=== PATIENT | female | born 1965 | race Caucasian/White ===

== ENCOUNTER 2017-02-13 14:47 | Inpatient (IN) | payer BC ==
[~2017-02-13] VITALS: Ht 167.6 cm; Wt 58.1 kg
[2017-02-13] MEDS ORDERED: ONDANSETRON INJ 2 MG/ML 2 ML VIAL IV STA (15:08)
[2017-02-13] MEDS ORDERED: MoRPHine SULFATE 4 MG/ML 1 ML CARP\\VIAL IV ONE (15:15)
[2017-02-13] MEDS ORDERED: SODIUM CHLORIDE 0.9% 1000ML 1,000 ML IV ONE (15:15)
[2017-02-13 15:27] LABS: URINE APPEARANCE CLOUDY (CLEAR); URINE COLOR DK YELLOW; URINE EPITHELIAL CELL AUTO >30 /lpf (0-5); URINE NITRITE NEG (NEG); URINE SPECIFIC GRAVITY 1.027 (1.000-1.030); UROBILINOGEN NEG (NEG); ZZUR CULT IF INDIC CLEAN CATCH YES
[2017-02-13 15:29] LABS: MANUAL MICROSCOPIC REQUIRED? NO; REVIEW REQ? NO
[2017-02-13] MEDS ORDERED: OPTIRAY 320 IV PRN (15:30)
[2017-02-13 15:31] LABS: URINE BILIRUBIN NEG (NEG)
[2017-02-13 15:40] LABS: BASO % 0.2 %; BASO ABS # 0.03 K/uL (0-0.2); COMPLETE YES; EOS % 1.4 %; HEMATOCRIT 42.8 % (37-47); IG% 0.3 %; LYMPH % 11.9 %; LYMPH ABS # 1.65 K/uL (1.2-3.4); MEAN CELL VOLUME 92.8 fL (80-100); MEAN CORPUSCULAR HEMOGLOBIN 32.5 pg (25-34); MEAN PLATELET VOLUME 10.1 fL (7.4-10.4); MONO % 8.2 %; PLATELET COUNT 208 K/uL (130-400); RED BLOOD COUNT 4.61 M/uL (4.2-5.4); WHITE BLOOD COUNT 13.81 K/uL (4.8-10.8)
[2017-02-13] MEDS ORDERED: MULT-240 PO (15:42)
[2017-02-13] MEDS ORDERED: MAGN1TAB16 PO (15:47)
[2017-02-13] MEDS ORDERED: CHOL100027 PO (15:47)
[2017-02-13] MEDS ORDERED: [UNRECOGNIZED DRUG - OTHER] PO (15:47)
[2017-02-13 15:58] LABS: BUN/CREATININE RATIO 14.6 (10-20); CALCIUM 8.8 mg/dl (8.5-10.1); CREATININE 0.79 mg/dl (0.60-1.20); POTASSIUM 3.6 mmol/L (3.5-5.1)
[2017-02-13 16:01] LABS: ALB/GLOB RATIO 0.9 (0.9-2)
--- NOTE | 2017-02-13 17:58 | DIAGNOSTIC IMAGING REPORT ---
CT SCAN OF THE ABDOMEN AND PELVIS WITH IV CONTRAST CLINICAL HISTORY: Fever. Generalized abdominal pain. COMPARISON STUDY: Abdominal CT dated 09/04/2007. TECHNIQUE: Following the IV administration of 119 cc of Optiray 320, CT scan of the abdomen and pelvis is performed from the lung bases to the proximal femora. Images are reviewed in the axial, sagittal, and coronal planes. IV contrast was administered without complication. A dose lowering technique was utilized adhering to the principles of ALARA. CT DOSE: 275.64 mGy.cm FINDINGS: Lung bases: The heart is normal in size and without pericardial effusion. A fat-containing Bochdalek hernia is seen at the left lung base. No airspace consolidation or pleural effusion is identified. Liver: The contrast-enhanced liver is mildly enlarged measuring 19.5 cm in length. The liver is normal in contour and attenuation. There is no intrahepatic biliary ductal dilatation. The hepatic veins and portal veins are patent. Gallbladder: Unremarkable. Spleen: Normal in size and attenuation. Pancreas: Unremarkable. Adrenal glands: Unremarkable. Kidneys: The contrast enhanced kidneys are normal in size and without hydronephrosis. The kidneys enhance symmetrically. Scattered subcentimeter cortical hypodensities are identified in both kidneys. These may represent cysts but are too small for definitive characterization. Abdominal vasculature: The abdominal aorta is normal in course and caliber. Bowel: No bowel obstruction is identified. There is mild colonic diverticulosis, greatest involving the right colon. There is wall thickening and pericolonic inflammation seen involving the ascending colon, likely representing acute diverticulitis. Phlegmonous change is seen adjacent to the ascending colon on axial image #192. There is no organized fluid collection seen to confirm the presence of abscess. The appendix is well-visualized and normal. Peritoneum: No definite intraperitoneal free air is seen. There is no abdominal ascites. Lymphadenopathy: None. Pelvic viscera: The bladder, uterus, and adnexa are normal as visualized noting bilateral ovarian follicles. Trace free fluid is identified in the cul-de-sac. Skeletal structures: No lytic or blastic lesions are seen. IMPRESSION: 1. Findings are most consistent with acute diverticulitis of the right colon. There is phlegmonous change identified adjacent to the right colon without clear evidence of abscess. 2.If not recently performed a precautionary follow-up colonoscopy is recommended following appropriate treatment. 3. There is trace free fluid in the cul-de-sac, likely within physiologic limits. Electronically signed by: Jerry Bartlett M.D. 02/13/2017 5:57 PM Dictated Date/Time: 02/13/2017 5:48 PM
[2017-02-13] MEDS ORDERED: PIPERACILLIN/TAZOBACTAM 4.5 GM/100ML D5W IV STA (18:24)
--- NOTE | 2017-02-13 19:07 | EMERGENCY ROOM VISIT NOTE ---
History First contact with patient: 14:59 Chief Complaint: ABDOMINAL PAIN Stated Complaint: ABD PAIN, FEVER Nursing Triage Summary: pt to the ED with lower abd pain bloating and fever for the past couple days pt also has body aches no n/v/d History of Present Illness The patient is a 52 year old female who presents to the Emergency Room with complaints of generalized abdominal pain and bloating over the past one to 2 days. The patient states that she has had body aches and fever for the past one day. She is without nausea, vomiting, or diarrhea. She has been eating and drinking as normal. The patient initially went to urgent care clinic today , and was referred to the emergency department for further evaluation. The patient considers herself usually healthy and does not take medication on a regular basis. She has been using some ibuprofen with minimal improvement of symptoms. The patient does report having a colonoscopy last year which did show diverticulosis. She rates her current discomfort a 4/10. Review of Systems More than 10 systems were reviewed and otherwise negative with the exception of history of present illness. Past Medical/Surgical History Diverticulosis Family History No pertinent family history Social History Smoking Status: Former Smoker Marital Status: Current/Historical Medications Scheduled Cholecalciferol (Vitamin D 1000 Unit), 1,000 INTER.UNIT PO DAILY Magnesium (Chelated Magnesium), 100 MG PO DAILY Multiple Vitamins W/ Minerals (Womens One Daily), 1 TAB PO DAILY [Adrenal Tone], 1 CAP PO BID Allergies Coded Allergies: Ciprofloxacin (Verified Allergy, Unknown, Hives, 03/03/16) Sulfamethoxazole w/Trimethoprim (Verified Allergy, Unknown, Hives, 03/03/16 ) Uncoded Allergies: SEASONAL (Allergy, Unknown, 07/11/02) SOFT SHELL CLAMS (VIOLENT VOMITING) (Allergy, Unknown, 07/11/02) GENERALANESTHET (Adverse Reaction, Mild, 07/03/09) ?ANESTHESIA MEDS.(NAUSEA,VOMITING,FAINTING,DECREASE BP) Physical Exam Vital Signs Date Time Temp Pulse Resp B/P (MAP) Pulse Ox O2 Delivery O2 Flow Rate FiO2 02/13/17 18:33 78 16 118/64 96 Room Air 02/13/17 17:04 71 18 100/61 96 02/13/17 14:49 36.8 81 20 101/66 96 Room Air Physical Exam VITALS: Vitals are noted on the nurse's note and reviewed by myself. Vital signs stable. GENERAL: Well-developed, well-nourished, white female, who is in no acute distress and resting comfortably. Patient is cooperative with the examination. MOUTH: Mucous membranes moist. Tonsils are not enlarged. Pharynx without erythema, blood, or exudate. Uvula midline. Airway patent. NECK: Supple without nuchal rigidity. No lymphadenopathy. No thyromegaly. Cervical spine is nontender. HEART: Regular rate and rhythm without murmurs gallops or rubs. LUNGS: Clear to auscultation bilaterally without wheezes, rales or rhonchi. No retractions or accessory muscle use. ABDOMEN: Positive normal bowel sounds x 4. Soft with generalized tenderness on palpation. No distinct point tenderness. MUSCULOSKELETAL: No muscle atrophy, erythema, or edema noted. Full range of motion without joint tenderness in all extremities. Medical Decision & Procedures ER Provider Diagnostic Interpretation: CT SCAN OF THE ABDOMEN AND PELVIS WITH IV CONTRAST CLINICAL HISTORY: Fever. Generalized abdominal pain. COMPARISON STUDY: Abdominal CT dated 09/04/2007. TECHNIQUE: Following the IV administration of 119 cc of Optiray 320, CT scan of the abdomen and pelvis is performed from the lung bases to the proximal femora. Images are reviewed in the axial, sagittal, and coronal planes. IV contrast was administered without complication. A dose lowering technique was utilized adhering to the principles of ALARA. CT DOSE: 275.64 mGy.cm FINDINGS: Lung bases: The heart is normal in size and without pericardial effusion. A fat-containing Bochdalek hernia is seen at the left lung base. No airspace consolidation or pleural effusion is identified. Liver: The contrast-enhanced liver is mildly enlarged measuring 19.5 cm in length. The liver is normal in contour and attenuation. There is no intrahepatic biliary ductal dilatation. The hepatic veins and portal veins are patent. Gallbladder: Unremarkable. Spleen: Normal in size and attenuation. Pancreas: Unremarkable. Adrenal glands: Unremarkable. Kidneys: The contrast enhanced kidneys are normal in size and without hydronephrosis. The kidneys enhance symmetrically. Scattered subcentimeter cortical hypodensities are identified in both kidneys. These may represent cysts but are too small for definitive characterization. Abdominal vasculature: The abdominal aorta is normal in course and caliber. Bowel: No bowel obstruction is identified. There is mild colonic diverticulosis, greatest involving the right colon. There is wall thickening and pericolonic inflammation seen involving the ascending colon, likely representing acute diverticulitis. Phlegmonous change is seen adjacent to the ascending colon on axial image #192. There is no organized fluid collection seen to confirm the presence of abscess. The appendix is well-visualized and normal. Peritoneum: No definite intraperitoneal free air is seen. There is no abdominal ascites. Lymphadenopathy: None. Pelvic viscera: The bladder, uterus, and adnexa are normal as visualized noting bilateral ovarian follicles. Trace free fluid is identified in the cul-de-sac. Skeletal structures: No lytic or blastic lesions are seen. IMPRESSION: 1. Findings are most consistent with acute diverticulitis of the right colon. There is phlegmonous change identified adjacent to the right colon without clear evidence of abscess. 2.If not recently performed a precautionary follow-up colonoscopy is recommended following appropriate treatment. 3. There is trace free fluid in the cul-de-sac, likely within physiologic limits. Laboratory Results 02/13/17 15:23 Red Blood Count 4.61, Mean Corpuscular Volume 92.8, Mean Corpuscular Hemoglobin 32.5, Mean Corpuscular Hemoglobin Concent 35.0, Mean Platelet Volume 10.1, Neutrophils (%) (Auto) 78.0, Lymphocytes (%) (Auto) 11.9, Monocytes (%) (Auto) 8.2, Eosinophils (%) (Auto) 1.4, Basophils (%) (Auto) 0.2, Neutrophils # (Auto) 10.76, Lymphocytes # (Auto) 1.65, Monocytes # (Auto) 1.13, Eosinophils # (Auto) 0.20, Basophils # (Auto) 0.03 02/13/17 15:23 Test 02/13/17 15:14 02/13/17 15:23 02/13/17 15:30 Urine Color DK YELLOW Urine Appearance CLOUDY (CLEAR) Urine pH 6.0 (4.5-7.5) Urine Specific [place] 1.027 (1.000-1.030) Urine Protein TRACE (NEG) Urine Glucose (UA) NEG (NEG) Urine Ketones 3+ (NEG) Urine Occult Blood TRACE (NEG) Urine Nitrite NEG (NEG) Urine Bilirubin NEG (NEG) Urine Urobilinogen NEG (NEG) Urine Leukocyte Esterase TRACE (NEG) Urine WBC (Auto) 1-5 /hpf (0-5) Urine RBC (Auto) 10-30 /hpf (0-4) Urine Hyaline Casts (Auto) 1-5 /lpf (0-5) Urine Epithelial Cells (Auto) >30 /lpf (0-5) Urine Bacteria (Auto) 1+ (NEG) Urine Test NEG (NEG) White Blood Count 13.81 K/uL (4.8-10.8) Red Blood Count 4.61 M/uL (4.2-5.4) Hemoglobin 15.0 g/dL (12.0-16.0) Hematocrit 42.8 % (37-47) Mean Corpuscular Volume 92.8 fL (80-100) Mean Corpuscular Hemoglobin 32.5 pg (25-34) Mean Corpuscular Hemoglobin Concent 35.0 g/dl (32-36) Platelet Count 208 K/uL (130-400) Mean Platelet Volume 10.1 fL (7.4-10.4) Neutrophils (%) (Auto) 78.0 % Lymphocytes (%) (Auto) 11.9 % Monocytes (%) (Auto) 8.2 % Eosinophils (%) (Auto) 1.4 % Basophils (%) (Auto) 0.2 % Neutrophils # (Auto) 10.76 K/uL (1.4-6.5) Lymphocytes # (Auto) 1.65 K/uL (1.2-3.4) Monocytes # (Auto) 1.13 K/uL (0.11-0.59) Eosinophils # (Auto) 0.20 K/uL (0-0.5) Basophils # (Auto) 0.03 K/uL (0-0.2) RDW Standard Deviation 42.4 fL (36.4-46.3) RDW Coefficient of Variation 12.6 % (11.5-14.5) Immature Granulocyte % (Auto) 0.3 % Immature Granulocyte # (Auto) 0.04 K/uL (0.00-0.02) Anion Gap 8.0 mmol/L (3-11) Est Creatinine Clear Calc Drug Dose 76.4 ml/min Estimated GFR () 99.8 Estimated GFR (Non- 86.1 BUN/Creatinine Ratio 14.6 (10-20) Calcium Level 8.8 mg/dl (8.5-10.1) Total Bilirubin 2.0 mg/dl (0.2-1) Aspartate Amino Transf (AST/SGOT) 15 U/L (15-37) Alanine Aminotransferase (ALT/SGPT) 22 U/L (12-78) Alkaline Phosphatase 58 U/L (45-117) Total Protein 7.7 gm/dl (6.4-8.2) Albumin 3.7 gm/dl (3.4-5.0) Globulin 4.0 gm/dl (2.5-4.0) Albumin/Globulin Ratio 0.9 (0.9-2) Lipase 106 U/L (73-393) Bedside Lactic Acid Venous 0.89 mmol/L (0.90-1.70) Medications Administered Medications (Trade) Dose Ordered Sig/Juan R Route Start Time Stop Time Status Last Admin Dose Admin Sodium Chloride 1,000 ml @ 999 mls/hr Q1H1M ONCE IV 02/13/17 15:15 02/13/17 16:15 DC 02/13/17 15:21 999 MLS/HR Piperacillin Sod/ Tazobactam Sod (Zosyn Iv) 4.5 gm NOW STAT IV 02/13/17 18:24 02/13/17 18:26 DC 02/13/17 18:31 4.5 GM ED Course Physical exam and history were performed. Nursing notes, EMR, and Medication List were personally reviewed. Patient appears to have fever and generalized abdominal pain for the past one to 2 days. On examination the patient does have abdominal tenderness. She is not febrile here in the department. IV access was established and labs were obtained. The patient was hydrated with normal saline and given IV Zofran. I did order morphine, however the patient declined this as she did not have significant pain. Because of her symptoms and history of diverticulosis did elect to perform a CT scan of her abdomen and pelvis. The patient's blood work is as above and was reviewed. She does have an elevated white blood cell count of 13.8. She does not have significant anemia, bandemia, or gross electrolyte imbalance. Lipase and transaminases are nondiagnostic. Urine is without obvious infection. Lactic acid was negative. CT scan is as above and appears to show acute diverticulitis, which clinically does correlate with her symptoms. Of concern however is a fairly large phlegmon on the CT studies. There is no distinct abscess or air at this point, which is reassuring, however I have considerable concern that the patient will not do well with at home oral antibiotics. She is in much better candidate for admission and IV medication. Based on her allergies to Cipro and Bactrim she will be started on Zosyn. I did discuss the case with the on-call surgeon, Dr. Mcfarland, as well as the on- call [facility] Hospitalist Team, Haley Cruz. Please see their dictations for further patient course, plan, and disposition. The chart was completed utilizing [employer] Speech Voice Recognition Software. Grammatical errors, random word insertions, pronoun errors, and incomplete sentences are an occasional consequence of this system due to software limitations, ambient noise, and hardware issues. Any formal questions or concerns about the content, text, or information contained within the body of this dictation should be directly addressed to the provider for clarification. . Medical Decision Differential diagnosis: Etiologies such as appendicitis, diverticulitis, PUD, biliary pathology, UTI, pancreatitis, obstruction, mesenteric ischemia, aortic pathology, infections, inflammatory bowel disease, renal colic, as well as others were entertained. Impression Primary Impression: Acute diverticulitis Departure Information Referrals Joellen Fraire M.D. (PCP) Patient Instructions [facility]
--- NOTE | 2017-02-13 19:39 | Surgery Consultation ---
Consultation Date of Consultation: Feb 13, 2017. Attending Physician: History of Present Illness 52 y/o female began having generalized malaise and decreased appetite with low grade fever this past Wed upon returning home from a trip to [place]. She has also been to [place], [place], [place], [place] over the past 6 months. no diarrhea. Some pain now on Right side but not unbearable. Past Medical/Surgical History Medical Problems: (1) Acute diverticulitis Status: Acute Social History Smoking Status: Former Smoker Marital Status: Allergies Coded Allergies: Ciprofloxacin (Verified Allergy, Unknown, Hives, 03/03/16) Sulfamethoxazole w/Trimethoprim (Verified Allergy, Unknown, Hives, 03/03/16 ) Uncoded Allergies: SEASONAL (Allergy, Unknown, 07/11/02) SOFT SHELL CLAMS (VIOLENT VOMITING) (Allergy, Unknown, 07/11/02) GENERALANESTHET (Adverse Reaction, Mild, 07/03/09) ?ANESTHESIA MEDS.(NAUSEA,VOMITING,FAINTING,DECREASE BP) Home Medications Scheduled Cholecalciferol (Vitamin D 1000 Unit), 1,000 INTER.UNIT PO DAILY Magnesium (Chelated Magnesium), 100 MG PO DAILY Multiple Vitamins W/ Minerals (Womens One Daily), 1 TAB PO DAILY [Adrenal Tone], 1 CAP PO BID Current Inpatient Medications Current Inpatient Medications Medications (Trade) Dose Ordered Sig/Juan R Route Start Time Stop Time Status Last Admin Dose Admin Ioversol (Optiray 320) 100 ml UD PRN IV 02/13/17 15:30 02/17/17 15:29 Review of Systems Constitutional: + fever, + fatigue, + problem reported (generalized malaise, decreased appetite) Abdomen: + pain Physical Exam Date Time Temp Pulse Resp B/P (MAP) Pulse Ox O2 Delivery O2 Flow Rate FiO2 02/13/17 18:33 78 16 118/64 96 Room Air 02/13/17 17:04 71 18 100/61 96 02/13/17 14:49 36.8 81 20 101/66 96 Room Air General Appearance: WD/WN, no apparent distress Head: normocephalic, atraumatic Eyes: normal inspection, EOMI ENT: hearing grossly normal Neck: supple, no JVD Respiratory/Chest: no respiratory distress, no accessory muscle use Abdomen/GI: soft, + pertinent finding (+right sided TTP. + Rovsing. no guarding. ) Neurologic/Psych: alert, oriented x 3 Skin: normal color, warm/dry, no rash Laboratory Results Last 24 Hours Test 02/13/17 15:14 02/13/17 15:23 02/13/17 15:30 Urine Color DK YELLOW Urine Appearance CLOUDY Urine pH 6.0 Urine Specific [place] 1.027 Urine Protein TRACE Urine Glucose (UA) NEG Urine Ketones 3+ Urine Occult Blood TRACE Urine Nitrite NEG Urine Bilirubin NEG Urine Urobilinogen NEG Urine Leukocyte Esterase TRACE Urine WBC (Auto) 1-5 /hpf Urine RBC (Auto) 10-30 /hpf Urine Hyaline Casts (Auto) 1-5 /lpf Urine Epithelial Cells (Auto) >30 /lpf Urine Bacteria (Auto) 1+ Urine Test NEG White Blood Count 13.81 K/uL Red Blood Count 4.61 M/uL Hemoglobin 15.0 g/dL Hematocrit 42.8 % Mean Corpuscular Volume 92.8 fL Mean Corpuscular Hemoglobin 32.5 pg Mean Corpuscular Hemoglobin Concent 35.0 g/dl Platelet Count 208 K/uL Mean Platelet Volume 10.1 fL Neutrophils (%) (Auto) 78.0 % Lymphocytes (%) (Auto) 11.9 % Monocytes (%) (Auto) 8.2 % Eosinophils (%) (Auto) 1.4 % Basophils (%) (Auto) 0.2 % Neutrophils # (Auto) 10.76 K/uL Lymphocytes # (Auto) 1.65 K/uL Monocytes # (Auto) 1.13 K/uL Eosinophils # (Auto) 0.20 K/uL Basophils # (Auto) 0.03 K/uL RDW Standard Deviation 42.4 fL RDW Coefficient of Variation 12.6 % Immature Granulocyte % (Auto) 0.3 % Immature Granulocyte # (Auto) 0.04 K/uL Sodium Level 138 mmol/L Potassium Level 3.6 mmol/L Chloride Level 105 mmol/L Carbon Dioxide Level 25 mmol/L Anion Gap 8.0 mmol/L Blood Urea Nitrogen 12 mg/dl Creatinine 0.79 mg/dl Est Creatinine Clear Calc Drug Dose 76.4 ml/min Estimated GFR () 99.8 Estimated GFR (Non- 86.1 BUN/Creatinine Ratio 14.6 Random Glucose 80 mg/dl Calcium Level 8.8 mg/dl Total Bilirubin 2.0 mg/dl Aspartate Amino Transf (AST/SGOT) 15 U/L Alanine Aminotransferase (ALT/SGPT) 22 U/L Alkaline Phosphatase 58 U/L Total Protein 7.7 gm/dl Albumin 3.7 gm/dl Globulin 4.0 gm/dl Albumin/Globulin Ratio 0.9 Lipase 106 U/L Bedside Lactic Acid Venous 0.89 mmol/L Assessment & Plan CT scan reveals right sided diverticulitis with phlegmon no indication at this moment for urgent OR however with the inflammation being right sided we will certainly keep vigilant for clinically worsening symptoms NPO IV antibiotics will follow temp curve and wbc will follow closely.
[2017-02-13 20:40] VITALS: BP 101/64; PULSE 70; TEMP 37; O2SAT 95
[2017-02-13] MEDS ORDERED: ACETAMINOPHEN 325 MG TAB PO PRN (20:45)
[2017-02-13] MEDS ORDERED: LORAZEPAM 2 MG/ML 1 ML VIAL IV PRN (20:45)
[2017-02-13] MEDS ORDERED: KETOROLAC TROMETHAMINE 15 MG/ML VIAL IV. PRN (20:45)
[2017-02-13] MEDS ORDERED: HYDROmorphone INJ 0.5 MG/0.5 ML SYR IV PRN (20:45)
[2017-02-13] MEDS ORDERED: ACETAMINOPHEN IV 650 MG in EMPTY BAG 0 ML IV PRN (20:45)
[2017-02-13] MEDS ORDERED: ONDANSETRON INJ 2 MG/ML 2 ML VIAL IV PRN (20:45)
[2017-02-13 21:00] VITALS: BP 101/64; PULSE 70; TEMP 37; O2SAT 95; Ht 167.6 cm; Wt 58.1 kg
[2017-02-13] MEDS ORDERED: PIPERACILL/TAZOBAC CONSULT ACTIVE PRN (21:00)
[2017-02-13 21:20] LABS: PARTIAL THROMBOPLASTIN RATIO 1.2; PROTHROMBIN TIME (PATIENT) 10.4 SECONDS (9.0-12.0)
[2017-02-13] MEDS: D5NSS + 20MEQ KCL 1,000 ML IV SCH (21:26)
[2017-02-13] MEDS ORDERED: LORAZEPAM 2 MG/ML 1 ML VIAL IV STA (23:28)
[2017-02-13] MEDS ORDERED: LORAZEPAM INJ 0.25 MG in SYRINGE 0.125 ML IV STA (23:36)
[2017-02-13] MEDS: PIPERACILL/TAZOBAC IV 3.375 GM in DEXTROSE 5% 100ML IV SCH (23:50)
[2017-02-14] VITALS (7 sets, daily range): BP systolic 95–113; BP diastolic 59–69; PULSE 59–84; TEMP 36.7–37.2; O2SAT 94–97
[2017-02-14 06:01] LABS: BASO % 0.5 %; BASO ABS # 0.03 K/uL (0-0.2); COMPLETE YES; EOS % 4.7 %; HEMATOCRIT 39.2 % (37-47); IG% 0.2 %; LYMPH % 25.9 %; LYMPH ABS # 1.54 K/uL (1.2-3.4); MEAN CELL VOLUME 94.2 fL (80-100); MEAN CORPUSCULAR HEMOGLOBIN 31.3 pg (25-34); MEAN CORPUSCULAR HGB CONC 33.2 g/dl (32-36); MEAN PLATELET VOLUME 9.6 fL (7.4-10.4); MONO % 7.6 %; NEUT % 61.1 %; PLATELET COUNT 187 K/uL (130-400); RED BLOOD COUNT 4.16 M/uL (4.2-5.4); WHITE BLOOD COUNT 5.94 K/uL (4.8-10.8)
[2017-02-14 06:30] LABS: BUN/CREATININE RATIO 15.5 (10-20); CREATININE 0.65 mg/dl (0.60-1.20); POTASSIUM 3.5 mmol/L (3.5-5.1)
--- NOTE | 2017-02-14 07:25 | HISTORY & PHYSICAL EXAMINATION ---
DATE OF ADMISSION: 02/13/2017 PRIMARY CARE DOCTOR: Dr. Fraire. CHIEF COMPLAINT: Abdominal pain. HISTORY OF PRESENT ILLNESS: History is obtained from patient and records. Medical history is significant for colonic polyps, hemorrhoids, diverticulosis, past tobacco abuse, Two days history of right-sided abdominal pain, achy, flu-like symptoms. No chest pain, no shortness of breath, no problems with bowel movement. Patient went to urgent care center and was sent to the Emergency Room. CAT scan showed acute diverticulitis, R colon, phlegmonous change without clear evidence of abscess. Patient received Zosyn in the ER. MEDICAL HISTORY: As above. A 2016 colonoscopy showed diverticulosis and internal hemorrhoids and polyps. Repeat colonoscopy this year given villous adenoma pathology for 1 polyp. SURGERIES: Operations, she has had gynecologic procedures. HOME MEDICATIONS: Include multivitamins, magnesium. ALLERGIES: TO CIPRO, CLAMS, BACTRIM. FAMILY HISTORY: Upper GI cancer, hypertension. PERSONAL AND SOCIAL HISTORY: Past tobacco abuse. No chronic intake of alcoholic beverages. 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 REVIEW OF SYSTEMS: As per HPI, all other ROS negative. PHYSICAL EXAMINATION: VITAL SIGNS: Blood pressure was noted to be 118/64, pulse rate 77, RR 16, temperature 37, O2 sats 96 on room air. GENERAL: slightly anxious, uncomfortable, no respiratory distress. SKIN: Normal color. HEENT: [place] palpebral conjunctivae. Dry mucosa. NECK: No JVD. Supple. CHEST: Clear to auscultation. HEART: Regular rate and rhythm. ABDOMEN: Minimal tenderness on the right side. EXTREMITIES: No edema. No tenderness NEUROLOGIC: No gross focality. LABORATORY DATA: Hemoglobin 14, hematocrit 42.8, white cell count 13, platelets 208. Sodium 136, potassium 3.6, chloride 105, CO2 26, BUN 12, creatinine 0.7, and glucose was noted to be 80. IMAGING DATA: CT of abdomen and pelvis as per history of present illness ASSESSMENT: 1. Complicated diverticulitis. No signs of toxicity. unusual presentation of right-sided diverticulitis 2. hx colonic polyposis 3. Past tobacco abuse. PLAN: [facility] bowel rest. IVF, analgesia Zosyn Surgery consult. ER provider already in touch w Dr. Mcfarland. Patient due for follow-up screening colonoscopy w/ [facility] this year. DVT prophylaxis Lovenox subQ. Full code. MTDD
[2017-02-14] MEDS: PIPERACILL/TAZOBAC IV 3.375 GM in DEXTROSE 5% 100ML IV SCH ×3 (08:07→23:24)
[2017-02-14] MEDS: ENOXAPARIN 30 MG/0.3 ML SYR SQ SCH (09:52)
--- NOTE | 2017-02-14 11:20 | Progress Note ---
Medicine Progress Note Date & Time of Visit: Feb 14, 2017 at 11:20. (Michelle Mccord, P.A.-C.) Subjective Patient seen and examined. States that RLQ has continued since yesterday but has moved further right from midline, with radiation to her flank. Characterizes pain as sharp and localized today rather than diffuse yesterday. Feeling of abd distension has improved. Denies any fever, chills, nausea, vomiting, malaise, lightheadedness, CP, SOB. Had one episode of loose stool this morning. (Michelle Mccord, P.A.-C.) Objective Last 8 Hrs Date Time Temp Pulse Resp B/P (MAP) Pulse Ox O2 Delivery O2 Flow Rate FiO2 02/14/17 11:06 36.9 65 15 109/68 (82) 95 Room Air 02/14/17 08:28 36.9 65 15 97/64 (75) 95 Room Air 02/14/17 08:24 95 Room Air 02/14/17 07:49 36.9 65 15 97/64 (75) 95 Room Air Physical Exam: General Appearance: WD/WN, + mild distress Head: normocephalic, atraumatic Eyes: normal inspection, PERRL, EOMI ENT: hearing grossly normal, pharynx normal Neck: supple, no JVD, no adenopathy Respiratory/Chest: lungs clear to auscultation. No wheezes, rales or rhonci. No respiratory distress or accessory muscle use Cardiovascular: regular rate, rhythm, no murmur, normal peripheral pulses Abdomen/GI: normal bowel sounds, + TTP of RLQ. Rebound tenderness with palpation of R flank. + Rovsing's sign Extremities/Musculoskelatal: normal inspection, no calf tenderness, normal capillary refill, no pedal edema Neurologic/Psych: alert, normal mood/affect, oriented x 3 Skin: normal color, warm/dry Laboratory Results: Last 24 Hours Test 02/13/17 15:14 02/13/17 15:23 02/13/17 15:30 02/14/17 05:31 Urine Color DK YELLOW Urine Appearance CLOUDY Urine pH 6.0 Urine Specific [place] 1.027 Urine Protein TRACE Urine Glucose (UA) NEG Urine Ketones 3+ Urine Occult Blood TRACE Urine Nitrite NEG Urine Bilirubin NEG Urine Urobilinogen NEG Urine Leukocyte Esterase TRACE Urine WBC (Auto) 1-5 /hpf Urine RBC (Auto) 10-30 /hpf Urine Hyaline Casts (Auto) 1-5 /lpf Urine Epithelial Cells (Auto) >30 /lpf Urine Bacteria (Auto) 1+ Urine Test NEG White Blood Count 13.81 K/uL 5.94 K/uL Red Blood Count 4.61 M/uL 4.16 M/uL Hemoglobin 15.0 g/dL 13.0 g/dL Hematocrit 42.8 % 39.2 % Mean Corpuscular Volume 92.8 fL 94.2 fL Mean Corpuscular Hemoglobin 32.5 pg 31.3 pg Mean Corpuscular Hemoglobin Concent 35.0 g/dl 33.2 g/dl Platelet Count 208 K/uL 187 K/uL Mean Platelet Volume 10.1 fL 9.6 fL Neutrophils (%) (Auto) 78.0 % 61.1 % Lymphocytes (%) (Auto) 11.9 % 25.9 % Monocytes (%) (Auto) 8.2 % 7.6 % Eosinophils (%) (Auto) 1.4 % 4.7 % Basophils (%) (Auto) 0.2 % 0.5 % Neutrophils # (Auto) 10.76 K/uL 3.63 K/uL Lymphocytes # (Auto) 1.65 K/uL 1.54 K/uL Monocytes # (Auto) 1.13 K/uL 0.45 K/uL Eosinophils # (Auto) 0.20 K/uL 0.28 K/uL Basophils # (Auto) 0.03 K/uL 0.03 K/uL RDW Standard Deviation 42.4 fL 43.0 fL RDW Coefficient of Variation 12.6 % 12.5 % Immature Granulocyte % (Auto) 0.3 % 0.2 % Immature Granulocyte # (Auto) 0.04 K/uL 0.01 K/uL Prothrombin Time 10.4 SECONDS Prothromb Time International Ratio 1.0 Activated Partial Thromboplast Time 31.2 SECONDS Partial Thromboplastin Ratio 1.2 Sodium Level 138 mmol/L 140 mmol/L Potassium Level 3.6 mmol/L 3.5 mmol/L Chloride Level 105 mmol/L 109 mmol/L Carbon Dioxide Level 25 mmol/L 23 mmol/L Anion Gap 8.0 mmol/L 8.0 mmol/L Blood Urea Nitrogen 12 mg/dl 10 mg/dl Creatinine 0.79 mg/dl 0.65 mg/dl Est Creatinine Clear Calc Drug Dose 76.4 ml/min 92.9 ml/min Estimated GFR () 99.8 118.3 Estimated GFR (Non- 86.1 102.1 BUN/Creatinine Ratio 14.6 15.5 Random Glucose 80 mg/dl 86 mg/dl Calcium Level 8.8 mg/dl 8.0 mg/dl Magnesium Level 2.2 mg/dl Total Bilirubin 2.0 mg/dl Aspartate Amino Transf (AST/SGOT) 15 U/L Alanine Aminotransferase (ALT/SGPT) 22 U/L Alkaline Phosphatase 58 U/L Total Protein 7.7 gm/dl Albumin 3.7 gm/dl Globulin 4.0 gm/dl Albumin/Globulin Ratio 0.9 Lipase 106 U/L Bedside Lactic Acid Venous 0.89 mmol/L Hepatitis C Antibody Screen NEG Date/Time Source Procedure Growth Status 02/13/17 15:14 Urine , Clean Catch Urine Culture - Final MORE THAN THREE TYPES OF ORGANISMS LA... Complete (Michelle Mccord, P.A.-C.) Assessment & Plan This is a 52yo F with PMH of diverticulosis, hemorrhoids who presents with R sided abd pain and malaise x 2 days and was found to have acute diverticulitis. Acute diverticulitis of R colon: -Colonoscopy from 2016 with colonic polyps, internal hemorrhoids, diverticulosis -Denies any previous episodes of diverticulitis -CT abd/pelvis with phlegmonous change identified adjacent to R colon No clear evidence of abscess Trace fluid in cul-de-sac -General surgery on board -No indication for urgent surgery -However, will monitor closely for clinical worsening due to R sided diverticulitis -NPO for bowel rest -Continue IV abx -Pain control -Monitor labwork and vitals DVT Ppx: Lovenox Code status: FULL Dispo: Plan to return home once medically stable Current Inpatient Medications: Current Inpatient Medications Medications (Trade) Dose Ordered Sig/Juan R Route Start Time Stop Time Status Last Admin Dose Admin Ioversol (Optiray 320) 100 ml UD PRN IV 02/13/17 15:30 02/17/17 15:29 Enoxaparin Sodium (Lovenox Inj) 30 mg Q24H SQ 02/14/17 09:00 03/16/17 08:59 02/14/17 09:52 30 MG Acetaminophen (Tylenol Tab) 650 mg Q4H PRN PO 02/13/17 20:45 03/15/17 20:44 Acetaminophen 650 mg/Empty Bag 65 ml @ 260 mls/hr Q6H PRN IV 02/13/17 20:45 03/15/17 20:44 02/13/17 22:13 260 MLS/HR Ketorolac Tromethamine (Toradol Inj) 15 mg Q6H PRN IV. 02/13/17 20:45 02/18/17 20:44 02/13/17 23:51 15 MG Hydromorphone HCl (Dilaudid Inj) 0.5 mg Q3H PRN IV 02/13/17 20:45 02/27/17 20:44 02/14/17 07:19 0.5 MG Ondansetron HCl (Zofran Inj) 4 mg Q6H PRN IV 02/13/17 20:45 03/15/17 20:44 Lorazepam (Ativan Inj) 0.5 mg Q4H PRN IV 02/13/17 20:45 03/15/17 20:44 Piperacillin Sod/ Tazobactam Sod (Consult) 1 ea UD PRN N/A 02/13/17 21:00 03/15/17 20:59 Potassium Chloride/Dextrose/ Sod Cl 1,000 ml @ 75 mls/hr [id number] IV 02/13/17 21:00 03/15/17 20:59 02/13/17 21:26 75 MLS/HR Piperacillin Sod/ Tazobactam Sod 3.375 gm/Dextrose 115 ml @ 28.75 mls/ hr Q8H IV 02/14/17 00:00 02/23/17 15:59 02/14/17 08:07 28.75 MLS/HR Lorazepam 0.5 mg/ Syringe 0.5 ml @ 0.5 mls/min Q4H PRN IV 02/13/17 23:45 03/15/17 23:44 (Michelle Mccord ., P.A.-C.) Pt seen and examined, lab and images reviewed ,care co ordinateded with Michelle Mccord PA-C 52 yo f admitted to rt sided abdominal pain /CT abdomen /pelvis shows diverticulitis on rt colon clinically much better, no fever or chills , normal white count no nausea, abdominal pain has improved appreciate surgery eval advanced to clears , tolerating well cont conservative approach with IV fluids and IV abx plan to transition to Oral abx in next 24-48 hrs ( PO Cipro and Flagyl ) if pt continues to improve will need out pt colonoscopy in 6-8 weeks, ( was scheduled for feb 2017 as 1 yr follow up will update GI team Continued [facility] stay due to: multiple IV medications needed Discharge planning: home (8786) (Linda Amor M.D.)
--- NOTE | 2017-02-14 11:44 | Surgery Progress Note ---
Surgery Progress Note Date of Service Feb 14, 2017. Subjective some improvement, pain more localized to right, had loose BM this AM, no chills or fever Objective Vital Signs: Date Time Temp Pulse Resp B/P (MAP) Pulse Ox O2 Delivery O2 Flow Rate FiO2 02/14/17 11:06 36.9 65 15 109/68 (82) 95 Room Air 02/14/17 08:28 36.9 65 15 97/64 (75) 95 Room Air 02/14/17 08:24 95 Room Air 02/14/17 07:49 36.9 65 15 97/64 (75) 95 Room Air 02/14/17 00:00 36.8 72 16 108/61 (77) 97 Room Air 02/14/17 00:00 95 Room Air 02/13/17 21:00 37.0 70 16 101/64 95 Room Air 02/13/17 20:40 37.0 70 16 101/64 (76) 95 Room Air 02/13/17 20:15 73 20 110/58 96 02/13/17 18:33 78 16 118/64 96 Room Air 02/13/17 17:04 71 18 100/61 96 02/13/17 14:49 36.8 81 20 101/66 96 Room Air Abdomen: non distended, soft, + tenderness (mild right side, no guarding) Laboratory Results: Results Past 24 Hours Test 02/13/17 15:14 02/13/17 15:23 02/13/17 15:30 02/14/17 05:31 Range/Units Urine Color DK YELLOW Urine Appearance CLOUDY CLEAR Urine pH 6.0 4.5-7.5 Urine Specific [place] 1.027 1.000-1.030 Urine Protein TRACE NEG Urine Glucose (UA) NEG NEG Urine Ketones 3+ NEG Urine Occult Blood TRACE NEG Urine Nitrite NEG NEG Urine Bilirubin NEG NEG Urine Urobilinogen NEG NEG Urine Leukocyte Esterase TRACE NEG Urine WBC (Auto) 1-5 0-5 /hpf Urine RBC (Auto) 10-30 0-4 /hpf Urine Hyaline Casts (Auto) 1-5 0-5 /lpf Urine Epithelial Cells (Auto) >30 0-5 /lpf Urine Bacteria (Auto) 1+ NEG Urine Test NEG NEG White Blood Count 13.81 5.94 4.8-10.8 K/uL Red Blood Count 4.61 4.16 4.2-5.4 M/uL Hemoglobin 15.0 13.0 12.0-16.0 g/dL Hematocrit 42.8 39.2 37-47 % Mean Corpuscular Volume 92.8 94.2 80-100 fL Mean Corpuscular Hemoglobin 32.5 31.3 25-34 pg Mean Corpuscular Hemoglobin Concent 35.0 33.2 32-36 g/dl Platelet Count 208 187 130-400 K/uL Mean Platelet Volume 10.1 9.6 7.4-10.4 fL Neutrophils (%) (Auto) 78.0 61.1 % Lymphocytes (%) (Auto) 11.9 25.9 % Monocytes (%) (Auto) 8.2 7.6 % Eosinophils (%) (Auto) 1.4 4.7 % Basophils (%) (Auto) 0.2 0.5 % Neutrophils # (Auto) 10.76 3.63 1.4-6.5 K/uL Lymphocytes # (Auto) 1.65 1.54 1.2-3.4 K/uL Monocytes # (Auto) 1.13 0.45 0.11-0.59 K/uL Eosinophils # (Auto) 0.20 0.28 0-0.5 K/uL Basophils # (Auto) 0.03 0.03 0-0.2 K/uL RDW Standard Deviation 42.4 43.0 36.4-46.3 fL RDW Coefficient of Variation 12.6 12.5 11.5-14.5 % Immature Granulocyte % (Auto) 0.3 0.2 % Immature Granulocyte # (Auto) 0.04 0.01 0.00-0.02 K/uL Prothrombin Time 10.4 9.0-12.0 SECONDS Prothromb Time International Ratio 1.0 0.9-1.1 Activated Partial Thromboplast Time 31.2 21.0-31.0 SECONDS Partial Thromboplastin Ratio 1.2 Sodium Level 138 140 136-145 mmol/L Potassium Level 3.6 3.5 3.5-5.1 mmol/L Chloride Level 105 109 98-107 mmol/L Carbon Dioxide Level 25 23 21-32 mmol/L Anion Gap 8.0 8.0 3-11 mmol/L Blood Urea Nitrogen 12 10 7-18 mg/dl Creatinine 0.79 0.65 0.60-1.20 mg/dl Est Creatinine Clear Calc Drug Dose 76.4 92.9 ml/min Estimated GFR () 99.8 118.3 Estimated GFR (Non- 86.1 102.1 BUN/Creatinine Ratio 14.6 15.5 10-20 Random Glucose 80 86 70-99 mg/dl Calcium Level 8.8 8.0 8.5-10.1 mg/dl Magnesium Level 2.2 1.8-2.4 mg/dl Total Bilirubin 2.0 0.2-1 mg/dl Aspartate Amino Transf (AST/SGOT) 15 15-37 U/L Alanine Aminotransferase (ALT/SGPT) 22 12-78 U/L Alkaline Phosphatase 58 45-117 U/L Total Protein 7.7 6.4-8.2 gm/dl Albumin 3.7 3.4-5.0 gm/dl Globulin 4.0 2.5-4.0 gm/dl Albumin/Globulin Ratio 0.9 0.9-2 Lipase 106 73-393 U/L Bedside Lactic Acid Venous 0.89 0.90-1.70 mmol/L Hepatitis C Antibody Screen NEG NEG Microbiology Results 02/13/17 Urine Culture - Final, Complete MORE THAN THREE TYPES OF ORGANISMS [place]... Assessment & Plan ascending colon diverticulitis/phlegmon WBC normalized, afebrile colonoscopy 03/13 had ascending, descending and sigmoid diverticulosis, plan was to repeat in 1 year (4 cm sigmoid polyp resected) cont IV Zosyn will start clears
[2017-02-14] MEDS: D5NSS + 20MEQ KCL 1,000 ML IV SCH ×2 (14:21→23:23)
[2017-02-14] MEDS: LORAZEPAM INJ 0.5 MG in SYRINGE 0.25 ML IV PRN (21:32)
[2017-02-15] VITALS: BP 92/56; PULSE 72; TEMP 36.9; O2SAT 95; O2SAT 97
[2017-02-15 07:30] LABS: MEAN CELL VOLUME 93.4 fL (80-100); MEAN CORPUSCULAR HEMOGLOBIN 31.8 pg (25-34); MEAN CORPUSCULAR HGB CONC 34.1 g/dl (32-36); MEAN PLATELET VOLUME 9.9 fL (7.4-10.4); PLATELET COUNT 182 K/uL (130-400); RED BLOOD COUNT 3.96 M/uL (4.2-5.4); WHITE BLOOD COUNT 4.12 K/uL (4.8-10.8)
[2017-02-15 07:47] VITALS: BP 102/64; PULSE 66; TEMP 36.7; O2SAT 97
[2017-02-15 07:57] LABS: BUN/CREATININE RATIO 12.3 (10-20); CALCIUM 8.3 mg/dl (8.5-10.1); CREATININE 0.6 mg/dl (0.60-1.20); POTASSIUM 3.8 mmol/L (3.5-5.1)
--- NOTE | 2017-02-15 07:58 | Surgery Progress Note ---
Surgery Progress Note Date of Service Feb 15, 2017. Subjective + bowel movement, + diet (clears) feeling better, no fevers, back pain resolved Objective Vital Signs: Date Time Temp Pulse Resp B/P (MAP) Pulse Ox O2 Delivery O2 Flow Rate FiO2 02/15/17 07:47 36.7 66 14 102/64 (77) 97 Room Air 02/15/17 00:00 95 Room Air 02/15/17 00:00 36.9 72 18 92/56 (68) 97 Room Air 02/14/17 19:24 37.2 84 16 95/59 (71) 94 Room Air 02/14/17 16:00 Room Air 02/14/17 15:32 36.7 59 16 113/69 (84) 97 Room Air 02/14/17 11:06 36.9 65 15 109/68 (82) 95 Room Air 02/14/17 08:28 36.9 65 15 97/64 (75) 95 Room Air 02/14/17 08:24 95 Room Air Abdomen: non distended, soft, + tenderness (less RLQ) Laboratory Results: Results Past 24 Hours Test 02/15/17 07:05 Range/Units White Blood Count 4.12 4.8-10.8 K/uL Red Blood Count 3.96 4.2-5.4 M/uL Hemoglobin 12.6 12.0-16.0 g/dL Hematocrit 37.0 37-47 % Mean Corpuscular Volume 93.4 80-100 fL Mean Corpuscular Hemoglobin 31.8 25-34 pg Mean Corpuscular Hemoglobin Concent 34.1 32-36 g/dl RDW Standard Deviation 42.2 36.4-46.3 fL RDW Coefficient of Variation 12.3 11.5-14.5 % Platelet Count 182 130-400 K/uL Mean Platelet Volume 9.9 7.4-10.4 fL Assessment & Plan ascending colon diverticulitis/phlegmon WBC remains normal colonoscopy 03/13 had ascending, descending and sigmoid diverticulosis, plan was to repeat in 1 year (4 cm sigmoid polyp resected) cont IV Zosyn advance to full liquids
[2017-02-15 08:12] VITALS: O2SAT 97
[2017-02-15] MEDS: PIPERACILL/TAZOBAC IV 3.375 GM in DEXTROSE 5% 100ML IV SCH ×3 (08:28→23:23)
[2017-02-15] MEDS: ENOXAPARIN 30 MG/0.3 ML SYR SQ SCH (08:29)
--- NOTE | 2017-02-15 12:55 | Progress Note ---
Medicine Progress Note Date & Time of Visit: Feb 15, 2017 at 12:37. (Michelle Mccord, P.A.-C.) Subjective Patient seen and examined. Feeling much better today, tolerating full liquid diet. Still experiencing dull abdominal pain in RLQ but no longer radiating to back/ LLQ. Had 2 loose bowel movements today. Denies fever, chills, malaise, nausea, vomiting, constipation. (Michelle Mccord, P.A.-C.) Objective Last 8 Hrs Date Time Temp Pulse Resp B/P (MAP) Pulse Ox O2 Delivery O2 Flow Rate FiO2 02/15/17 08:12 97 Room Air 02/15/17 08:00 Room Air 02/15/17 07:47 36.7 66 14 102/64 (77) 97 Room Air Physical Exam: General Appearance: WD/WN, no distress Head: normocephalic, atraumatic Eyes: normal inspection, PERRL, EOMI ENT: hearing grossly normal, pharynx normal Neck: supple, no JVD, no adenopathy Respiratory/Chest: lungs clear to auscultation. No wheezes, rales or rhonci. No respiratory distress or accessory muscle use Cardiovascular: regular rate, rhythm, no murmur, normal peripheral pulses Abdomen/GI: normal bowel sounds, + TTP of RLQ. No guarding Extremities/Musculoskelatal: normal inspection, no calf tenderness, normal capillary refill, no pedal edema Neurologic/Psych: alert, normal mood/affect, oriented x 3 Skin: normal color, warm/dry Laboratory Results: Last 24 Hours Test 02/15/17 07:05 White Blood Count 4.12 K/uL Red Blood Count 3.96 M/uL Hemoglobin 12.6 g/dL Hematocrit 37.0 % Mean Corpuscular Volume 93.4 fL Mean Corpuscular Hemoglobin 31.8 pg Mean Corpuscular Hemoglobin Concent 34.1 g/dl RDW Standard Deviation 42.2 fL RDW Coefficient of Variation 12.3 % Platelet Count 182 K/uL Mean Platelet Volume 9.9 fL Sodium Level 142 mmol/L Potassium Level 3.8 mmol/L Chloride Level 110 mmol/L Carbon Dioxide Level 25 mmol/L Anion Gap 7.0 mmol/L Blood Urea Nitrogen 7 mg/dl Creatinine 0.60 mg/dl Est Creatinine Clear Calc Drug Dose 100.6 ml/min Estimated GFR () 121.5 Estimated GFR (Non- 104.8 BUN/Creatinine Ratio 12.3 Random Glucose 98 mg/dl Calcium Level 8.3 mg/dl (Michelle Mccord, P.A.-C.) Assessment & Plan This is a 52yo F with PMH of diverticulosis, hemorrhoids who presents with R sided abd pain and malaise x 2 days and was found to have acute diverticulitis. Acute diverticulitis of R colon: improving -Colonoscopy from 2016 with colonic polyps, internal hemorrhoids, diverticulosis -Denies any previous episodes of diverticulitis -CT abd/pelvis with phlegmonous change identified adjacent to R colon -General surgery on board -No indication for urgent surgery -Continue IV abx -Advance diet to full liquids. Tolerating well -Plan to switch to PO abx when appropriate for discharge -Coordinating out-patient follow-up colonoscopy in 8 weeks -Monitor labwork and vitals DVT Ppx: Lovenox Code status: FULL Dispo: Plan to return home once medically stable Continued [facility] stay due to: multiple IV medications needed Discharge planning: home ([id number]) Current Inpatient Medications: Current Inpatient Medications Medications (Trade) Dose Ordered Sig/Juan R Route Start Time Stop Time Status Last Admin Dose Admin Ioversol (Optiray 320) 100 ml UD PRN IV 02/13/17 15:30 02/17/17 15:29 Enoxaparin Sodium (Lovenox Inj) 30 mg Q24H SQ 02/14/17 09:00 03/16/17 08:59 02/14/17 09:52 30 MG Acetaminophen (Tylenol Tab) 650 mg Q4H PRN PO 02/13/17 20:45 03/15/17 20:44 Acetaminophen 650 mg/Empty Bag 65 ml @ 260 mls/hr Q6H PRN IV 02/13/17 20:45 03/15/17 20:44 02/13/17 22:13 260 MLS/HR Ketorolac Tromethamine (Toradol Inj) 15 mg Q6H PRN IV. 02/13/17 20:45 02/18/17 20:44 02/13/17 23:51 15 MG Hydromorphone HCl (Dilaudid Inj) 0.5 mg Q3H PRN IV 02/13/17 20:45 02/27/17 20:44 02/14/17 07:19 0.5 MG Ondansetron HCl (Zofran Inj) 4 mg Q6H PRN IV 02/13/17 20:45 03/15/17 20:44 Lorazepam (Ativan Inj) 0.5 mg Q4H PRN IV 02/13/17 20:45 03/15/17 20:44 Piperacillin Sod/ Tazobactam Sod (Consult) 1 ea UD PRN N/A 02/13/17 21:00 03/15/17 20:59 Potassium Chloride/Dextrose/ Sod Cl 1,000 ml @ 75 mls/hr [id number] IV 02/13/17 21:00 03/15/17 20:59 02/14/17 23:23 75 MLS/HR Piperacillin Sod/ Tazobactam Sod 3.375 gm/Dextrose 115 ml @ 28.75 mls/ hr Q8H IV 02/14/17 00:00 02/23/17 15:59 02/15/17 08:28 28.75 MLS/HR Lorazepam 0.5 mg/ Syringe 0.5 ml @ 0.5 mls/min Q4H PRN IV 02/13/17 23:45 03/15/17 23:44 02/14/17 21:32 0.5 MLS/MIN (Michelle Mccord ., P.A.-C.) ATTENDING NOTE ; pt seen and examined, care co ordinated with Michelle Mccord PA-C , please see her documentation for detail discussion , abdominal pain has improved no nausea diet advanced to full liquid by surgery -tolerating well cont iV abx for now plan to change to PO Abx Cipro/Flagyl in next 24-48 hrs as pt clinically improves out pt follow up colonoscopy in 8 weeks , [facility] GI team aware Discharge planning: home ([id number]) (Linda Amor M.D.)
[2017-02-15] MEDS: D5NSS + 20MEQ KCL 1,000 ML IV SCH (15:03)
[2017-02-15 15:49] VITALS: BP 107/68; PULSE 71; TEMP 36.6; O2SAT 98
[2017-02-15] MEDS: LORAZEPAM INJ 0.5 MG in SYRINGE 0.25 ML IV PRN (22:02)
[2017-02-15] MEDS ORDERED: NURSING VERBAL MED ORDER ONE (23:15)
[2017-02-15 23:16] VITALS: BP 101/66; PULSE 71; TEMP 36.9; O2SAT 97
[2017-02-16 06:27] LABS: HEMATOCRIT 36.5 % (37-47); MEAN CELL VOLUME 93.8 fL (80-100); MEAN CORPUSCULAR HEMOGLOBIN 33.2 pg (25-34); MEAN CORPUSCULAR HGB CONC 35.3 g/dl (32-36); MEAN PLATELET VOLUME 9.7 fL (7.4-10.4); PLATELET COUNT 206 K/uL (130-400); RED BLOOD COUNT 3.89 M/uL (4.2-5.4); WHITE BLOOD COUNT 4.52 K/uL (4.8-10.8)
[2017-02-16 06:58] LABS: BUN/CREATININE RATIO 5.5 (10-20); CALCIUM 8.5 mg/dl (8.5-10.1); CREATININE 0.79 mg/dl (0.60-1.20)
[2017-02-16 07:21] VITALS: BP 109/65; PULSE 71; TEMP 36.9; O2SAT 99
[2017-02-16 07:50] VITALS: O2SAT 99
[2017-02-16] MEDS: PIPERACILL/TAZOBAC IV 3.375 GM in DEXTROSE 5% 100ML IV SCH (08:19)
--- NOTE | 2017-02-16 08:29 | Surgery Progress Note ---
Surgery Progress Note Date of Service Feb 16, 2017. Subjective + feeling well (denies pain, tolerating low residue diet) Objective Vital Signs: Date Time Temp Pulse Resp B/P (MAP) Pulse Ox O2 Delivery O2 Flow Rate FiO2 02/16/17 07:21 36.9 71 16 109/65 (80) 99 Room Air 02/15/17 23:20 Room Air 02/15/17 23:16 36.9 71 18 101/66 (78) 97 Room Air 02/15/17 16:00 Room Air 02/15/17 15:49 36.6 71 16 107/68 (81) 98 Room Air Abdomen: non tender, soft Laboratory Results: Results Past 24 Hours Test 02/16/17 05:57 Range/Units White Blood Count 4.52 4.8-10.8 K/uL Red Blood Count 3.89 4.2-5.4 M/uL Hemoglobin 12.9 12.0-16.0 g/dL Hematocrit 36.5 37-47 % Mean Corpuscular Volume 93.8 80-100 fL Mean Corpuscular Hemoglobin 33.2 25-34 pg Mean Corpuscular Hemoglobin Concent 35.3 32-36 g/dl RDW Standard Deviation 42.2 36.4-46.3 fL RDW Coefficient of Variation 12.3 11.5-14.5 % Platelet Count 206 130-400 K/uL Mean Platelet Volume 9.7 7.4-10.4 fL Sodium Level 142 136-145 mmol/L Potassium Level 4.0 3.5-5.1 mmol/L Chloride Level 110 98-107 mmol/L Carbon Dioxide Level 25 21-32 mmol/L Anion Gap 7.0 3-11 mmol/L Blood Urea Nitrogen 4 7-18 mg/dl Creatinine 0.79 0.60-1.20 mg/dl Est Creatinine Clear Calc Drug Dose 76.4 ml/min Estimated GFR () 99.8 Estimated GFR (Non- 86.1 BUN/Creatinine Ratio 5.5 10-20 Random Glucose 90 70-99 mg/dl Calcium Level 8.5 8.5-10.1 mg/dl Assessment & Plan ascending colon diverticulitis/phlegmon improved ok for d/c on po abx, ?Augmentin colonoscopy in approx 6 weeks f/u Dr. Mcfarland in 2-3 weeks
[2017-02-16] MEDS: ENOXAPARIN 30 MG/0.3 ML SYR SQ SCH (09:00)
--- NOTE | 2017-02-16 10:19 | Progress Note ---
Medicine Progress Note Date & Time of Visit: Feb 16, 2017 at 10:13. (Michelle Mccord, P.A.-C.) Subjective Patient seen and examined. Doing well today. States that she has not had abdominal pain for the last day. Is tolerating a low residue diet well. Is passing gas but has not had a formed bowel movement yet. Denies fever, chills, CP, SOB , N/V, diarrhea. Is ready to go home. (Michelle Mccord, P.A.-C.) Objective Last 8 Hrs Date Time Temp Pulse Resp B/P (MAP) Pulse Ox O2 Delivery O2 Flow Rate FiO2 02/16/17 07:21 36.9 71 16 109/65 (80) 99 Room Air Physical Exam: General Appearance: WD/WN, no distress Head: normocephalic, atraumatic Eyes: normal inspection, PERRL, EOMI ENT: hearing grossly normal, pharynx normal Neck: supple, no JVD, no adenopathy Respiratory/Chest: lungs clear to auscultation. No wheezes, rales or rhonci. No respiratory distress or accessory muscle use Cardiovascular: regular rate, rhythm, no murmur, normal peripheral pulses Abdomen/GI: normal bowel sounds, soft, no abdominal tenderness to palpation. Extremities/Musculoskelatal: normal inspection, no calf tenderness, normal capillary refill, no pedal edema Neurologic/Psych: alert, normal mood/affect, oriented x 3 Skin: normal color, warm/dry Laboratory Results: Last 24 Hours Test 02/16/17 05:57 White Blood Count 4.52 K/uL Red Blood Count 3.89 M/uL Hemoglobin 12.9 g/dL Hematocrit 36.5 % Mean Corpuscular Volume 93.8 fL Mean Corpuscular Hemoglobin 33.2 pg Mean Corpuscular Hemoglobin Concent 35.3 g/dl RDW Standard Deviation 42.2 fL RDW Coefficient of Variation 12.3 % Platelet Count 206 K/uL Mean Platelet Volume 9.7 fL Sodium Level 142 mmol/L Potassium Level 4.0 mmol/L Chloride Level 110 mmol/L Carbon Dioxide Level 25 mmol/L Anion Gap 7.0 mmol/L Blood Urea Nitrogen 4 mg/dl Creatinine 0.79 mg/dl Est Creatinine Clear Calc Drug Dose 76.4 ml/min Estimated GFR () 99.8 Estimated GFR (Non- 86.1 BUN/Creatinine Ratio 5.5 Random Glucose 90 mg/dl Calcium Level 8.5 mg/dl (Michelle Mccord, P.A.-C.) Assessment & Plan This is a 52yo F with PMH of diverticulosis, hemorrhoids who presents with R sided abd pain and malaise x 2 days and was found to have acute diverticulitis. Acute diverticulitis of R colon: improving -Colonoscopy from 2016 with colonic polyps, internal hemorrhoids, diverticulosis -Denies any previous episodes of diverticulitis -CT abd/pelvis with phlegmonous change identified adjacent to R colon -General surgery on board -No indication for urgent surgery -Continue antibiotic therapy -Advance diet to full liquids. Tolerating well -Plan to switch to PO Cipro/Flagyl later today prior to discharge -Coordinating out-patient follow-up colonoscopy in 8 weeks -Follow up with surgery in 2-3 weeks, PCP in a week DVT Ppx: Lovenox Code status: FULL Dispo: Plan to return home today Continued [facility] stay due to: multiple IV medications needed Discharge planning: home (0524) Current Inpatient Medications: Current Inpatient Medications Medications (Trade) Dose Ordered Sig/Juan R Route Start Time Stop Time Status Last Admin Dose Admin Ioversol (Optiray 320) 100 ml UD PRN IV 02/13/17 15:30 02/17/17 15:29 Enoxaparin Sodium (Lovenox Inj) 30 mg Q24H SQ 02/14/17 09:00 03/16/17 08:59 02/14/17 09:52 30 MG Acetaminophen (Tylenol Tab) 650 mg Q4H PRN PO 02/13/17 20:45 03/15/17 20:44 Acetaminophen 650 mg/Empty Bag 65 ml @ 260 mls/hr Q6H PRN IV 02/13/17 20:45 03/15/17 20:44 02/13/17 22:13 260 MLS/HR Ketorolac Tromethamine (Toradol Inj) 15 mg Q6H PRN IV. 02/13/17 20:45 02/18/17 20:44 02/13/17 23:51 15 MG Hydromorphone HCl (Dilaudid Inj) 0.5 mg Q3H PRN IV 02/13/17 20:45 02/27/17 20:44 02/14/17 07:19 0.5 MG Ondansetron HCl (Zofran Inj) 4 mg Q6H PRN IV 02/13/17 20:45 03/15/17 20:44 Lorazepam (Ativan Inj) 0.5 mg Q4H PRN IV 02/13/17 20:45 03/15/17 20:44 Piperacillin Sod/ Tazobactam Sod (Consult) 1 ea UD PRN N/A 02/13/17 21:00 03/15/17 20:59 Piperacillin Sod/ Tazobactam Sod 3.375 gm/Dextrose 115 ml @ 28.75 mls/ hr Q8H IV 02/14/17 00:00 02/23/17 15:59 02/16/17 08:19 28.75 MLS/HR Lorazepam 0.5 mg/ Syringe 0.5 ml @ 0.5 mls/min Q4H PRN IV 02/13/17 23:45 03/15/17 23:44 02/15/17 22:02 0.5 MLS/MIN (Michelle Mccord, P.A.-C.) ATTENDING NOTE : pt seen and examined , in agreement with above pt is doing clinically better , no complain of abdominal pain , no nausea , tolerating low residue diet well had normal bowel movement today evaluated by Surgery stable to be discharged home with out pt follow up Abx changed to PO Augmenin ( noted to have allergy to Cipro ) out pt follow up with surgery out pt colonoscopy to be scheduled for in next 6-8 weeks Discharge planning: home ([id number]) Consultants: SURGERY DR ROWAN (Linda Amor M.D.)
--- NOTE | 2017-02-16 11:59 | Discharge Instructions ---
Discharge Instructions Date of Service Feb 16, 2017. Admission Reason for Admission: Diverticulitis Discharge Discharge Diagnosis / Problem: ACUTE DIVERTICULITIS Discharge Goals Goal(s): Decrease discomfort, Improve disease control, Diagnostic testing, Therapeutic intervention Activity Recommendations Activity Limitations: resume your previous activity . Instructions / Follow-Up Instructions / Follow-Up HOSPITAL FOLLOW UP 02/21/2017 10:40 AM Joellen Fraire MD Family Practice [facility] SURGERY FOLLOW UP DR ROWAN IN 2-3 WEEKS, PLEASE CALL OFFICE FOR APPOINTMENT COLONOSCOPY IN NEXT 8 WEEKS , GI OFFICE WILL CALL WITH APPOINTMENT Current Hospital Diet Patient's current hospital diet: Gluten Free Diet, Low Fiber Diet Discharge Diet Recommended Diet: Low Fiber Diet, Gluten Free Diet Pending Studies Studies pending at discharge: no Medical Emergencies . Who to Call and When: Medical Emergencies: If at any time you feel your situation is an emergency, please call 911 immediately. . Non-Emergent Contact Non-Emergency issues call your: Primary Care Provider . . "Provider Documentation" section prepared by Linda Amor. . VTE Core Measure Inpt VTE Proph given/why not?: Enoxaparin (Lovenox)SQ
[2017-02-16 12:02] VITALS: BP 109/65; PULSE 71; TEMP 36.9; O2SAT 99
[2017-02-16] MEDS ORDERED: AMOX500T PO (12:02)
[2017-02-16] MEDS ORDERED: AMOXICILLIN/CLAVULANATE TAB 875 MG TAB PO ONE (12:30)
--- NOTE | 2017-02-16 16:01 | Discharge Summary ---
Discharge Summary Date of Service Feb 16, 2017. Discharge Summary Admission Date: Feb 13, 2017 at 19:36 Discharge Date: Feb 16, 2017 Discharge Disposition: Home Principal Diagnosis: ACUTE DIVERTICULITIS Procedures: CT ABDOMEN /PELVIS: IMPRESSION: 1. Findings are most consistent with acute diverticulitis of the right colon. There is phlegmonous change identified adjacent to the right colon without clear evidence of abscess. 2.If not recently performed a precautionary follow-up colonoscopy is recommended following appropriate treatment. 3. There is trace free fluid in the cul-de-sac, likely within physiologic limits. Consultations: SURGERY DR MCFARLAND Medication Reconciliation New Medications: Amoxicillin & Pot Clavulanate (Augmentin 500MG) 1 Tab Tab 500 MG PO Q8H for 7 Days, #21 TAB Continued Medications: Cholecalciferol (Vitamin D 1000 Unit) 1,000 Unit Cap 1000 INTER.UNIT PO DAILY, CAP Magnesium (Chelated Magnesium) 100 Mg Tab 100 MG PO DAILY Multiple Vitamins W/ Minerals (Womens One Daily) 1 Tab Tab 1 TAB PO DAILY [Adrenal Tone] () 1 CAP PO BID Referrals At Discharge Follow up Referrals: Surgery Referral - Within a Month with Lux Mcfarland D.O. Admission Information HPI (per Admitting provider): DATE OF ADMISSION: 02/13/2017 PRIMARY CARE DOCTOR: Dr. Fraire. CHIEF COMPLAINT: Abdominal pain. HISTORY OF PRESENT ILLNESS: History is obtained from patient and records. Medical history is significant for colonic polyps, hemorrhoids, diverticulosis, past tobacco abuse, Two days history of right-sided abdominal pain, achy, flu-like symptoms. No chest pain, no shortness of breath, no problems with bowel movement. Patient went to urgent care center and was sent to the Emergency Room. CAT scan showed acute diverticulitis, R colon, phlegmonous change without clear evidence of abscess. Patient received Zosyn in the ER. MEDICAL HISTORY: As above. A 2016 colonoscopy showed diverticulosis and internal hemorrhoids and polyps. Repeat colonoscopy this year given villous adenoma pathology for 1 polyp. SURGERIES: Operations, she has had gynecologic procedures. HOME MEDICATIONS: Include multivitamins, magnesium. ALLERGIES: TO CIPRO, CLAMS, BACTRIM. FAMILY HISTORY: Upper GI cancer, hypertension. PERSONAL AND SOCIAL HISTORY: Past tobacco abuse. No chronic intake of alcoholic beverages. 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 REVIEW OF SYSTEMS: As per HPI, all other ROS negative. Physical Exam (per Admitting): PHYSICAL EXAMINATION: VITAL SIGNS: Blood pressure was noted to be 118/64, pulse rate 77, RR 16, temperature 37, O2 sats 96 on room air. GENERAL: slightly anxious, uncomfortable, no respiratory distress. SKIN: Normal color. HEENT: Mackey palpebral conjunctivae. Dry mucosa. NECK: No JVD. Supple. CHEST: Clear to auscultation. HEART: Regular rate and rhythm. ABDOMEN: Minimal tenderness on the right side. EXTREMITIES: No edema. No tenderness NEUROLOGIC: No gross focality. Hospital Course ATTENDING NOTE : pt seen and examined , in agreement with above pt is doing clinically better , no complain of abdominal pain , no nausea , tolerating low residue diet well had normal bowel movement today evaluated by Surgery stable to be discharged home with out pt follow up Abx changed to PO Augmenin ( noted to have allergy to Cipro ) out pt follow up with surgery out pt colonoscopy to be scheduled for in next 6-8 weeks Total time spent on discharge = 35 MINS This includes examination of the patient, discharge planning, medication reconciliation, and communication with other providers. Discharge Instructions Discharge Instructions Date of Service Feb 16, 2017. Admission Reason for Admission: Diverticulitis Discharge Discharge Diagnosis / Problem: ACUTE DIVERTICULITIS Discharge Goals Goal(s): Decrease discomfort, Improve disease control, Diagnostic testing, Therapeutic intervention Activity Recommendations Activity Limitations: resume your previous activity . Instructions / Follow-Up Instructions / Follow-Up HOSPITAL FOLLOW UP 02/21/2017 10:40 AM Joellen Fraire MD Family Practice [facility] SURGERY FOLLOW UP DR MCFARLAND IN 2-3 WEEKS, PLEASE CALL OFFICE FOR APPOINTMENT COLONOSCOPY IN NEXT 8 WEEKS , GI OFFICE WILL CALL WITH APPOINTMENT Current Hospital Diet Patient's current hospital diet: Gluten Free Diet, Low Fiber Diet Discharge Diet Recommended Diet: Low Fiber Diet, Gluten Free Diet Pending Studies Studies pending at discharge: no Medical Emergencies . Who to Call and When: Medical Emergencies: If at any time you feel your situation is an emergency, please call 911 immediately. . Non-Emergent Contact Non-Emergency issues call your: Primary Care Provider . . "Provider Documentation" section prepared by Linda Amor. . VTE Core Measure Inpt VTE Proph given/why not?: Enoxaparin (Lovenox)SQ Additional Copies To Joellen Fraire M.D. Davidson, Matthew D. D.O.
== END 2017-02-16 13:32 | disposition home or self-care (01) | DRG 392 ==
LOC: C.EDB 14:47 → C.MED 19:36 → ENRESERV 19:50 → C.MS4W 02-15 15:32
PROVIDERS: ADMIT Hospitalist; ATTEND Hospitalist
DX: K57.20 Diverticulitis of large intestine with perforation and abscess without bleeding (principal); Z86.010 Personal history of colon polyps; Z87.891 Personal history of nicotine dependence